=== PATIENT | male | born 1960 | race Caucasian/White ===

== ENCOUNTER 2020-01-09 13:37 | Emergency (ER) | payer BC, SELFPAY ==
[2020-01-09 13:59] VITALS: BP 127/86; PULSE 77; RESP 20; O2SAT 94; BMI 32.3
--- NOTE | 2020-01-09 14:08 | W.ED.URI ---
HPI - URI/Sore Throat General: Chief Complaint: Shortness of Breath/Dyspnea Stated Complaint: covid pos. Time Seen by Provider: 01/09/20 14:03 History of Present Illness: HPI Narrative: 59-year-old male reports being covid positive. Patient initially began having symptoms 8 days ago the following day was tested several other family members from a family gathering tested or also having symptoms and eventually tested positive. This test result came back 2 days ago his was also in the emergency room today symptomatic. He has no fever anymore he did have temps up to 101.6 that is resolved he still has significant cough he does had some anosmia as well as myalgias and headache his biggest persistent problem is a cough he denies any productive cough at this time has not had any vomiting or diarrhea. MD elicited complaint: cough Pertinent past history: other (COVID) Onset (ago): day(s) Description of mucous: clear Exacerbating factors: exertion Relieving factors: rest Associated symptoms: Reports no associated symptoms; Deny abdominal pain, chills, chest pain, diarrhea, ear or mastoid pain, fever(s), nasal congestion, nausea or vomiting Treatments prior to arrival: none Review of Systems Const: Denies: fever(s), chills, body aches, change in appetite, fatigue or malaise ENMT: Denies: throat pain, ear or mastoid pain, nasal discharge or nasal congestion Card: Denies: chest pain, edema, dyspnea on exertion or orthopnea Resp: Denies: dyspnea, productive cough or non-productive cough GI: Denies: abdominal pain, nausea, vomiting, hematemesis, coffee ground emesis, diarrhea, constipation, bloating, hematochezia or melena : Denies: flank pain, dysuria, urinary frequency or urinary urgency Skin/Breast: Denies: rash or pruritus PFSH ED PFSH: Medical History (Updated 01/09/20 @ 17:01 by Jose Landry DO) Asthma Diabetes mellitus Hypertension Hypothyroid Surgical History (Updated 01/09/20 @ 16:16 by Jose Landry DO) H/O hand surgery History of appendectomy Social History (Updated 01/09/20 @ 16:16 by Jose Landry DO) Smoking and tobacco status: never smoked Alcohol intake: never Physical Exam Const: COMMON NORMALS: no acute distress GENERAL APPEARANCE: cooperative and comfortable ORIENTATION/CONSCIOUSNESS: Yes awake, Yes oriented to person, Yes oriented to place and Yes oriented to time HENMT: COMMON NORMALS: normocephalic, atraumatic and hearing grossly normal bilaterally HEAD & SCALP: normocephalic and atraumatic Eye: COMMON NORMALS: Equal, round and reactive pupils present, EOMs intact bilaterally, conjunctivae normal and no scleral icterus CONJUNCTIVA: Yes conjunctivae normal PUPIL: Yes Equal, round and reactive pupils present Neck/C-Spine: COMMON NORMALS: full ROM, no lymphadenopathy, supple and no JVD Lymph: LYMPHATIC: no lymphadenopathy noted and no lymphedema noted Resp: AUSCULTATION: rhonchi throughout and wheezes throughout Cardio: COMMON NORMALS: no JVD, regular rate, regular rhythm and No murmurs present (Cardio) RATE: regular rate RHYTHM: regular rhythm GI: COMMON NORMALS: Soft to palpation and No hepatosplenomegaly present AUSCULTATION: Yes normoactive bowel sounds PALPATION: Yes Soft to palpation, No Tenderness to palpation present (GI), No Guarding due to palpation present (GI) and Yes No hepatosplenomegaly present Extremity: COMMON NORMALS: normal to inspection, capillary refill normal, no clubbing, cyanosis or edema, no calf tenderness and no pedal edema Neuro: SENSORIUM/ORIENTATION: Yes oriented to person, Yes oriented to place and Yes oriented to time Skin: COMMON NORMALS: no rashes or lesions noted GENERAL SKIN EXAM: no rashes or lesions noted Course Vital Signs: Vital signs: Vital Signs Pulse Rate 74 01/09/20 17:33 Respiratory Rate 18 01/09/20 17:33 Blood Pressure 134/82 01/09/20 17:33 Pulse Oximetry 93 01/09/20 17:33 MDM - URI/Sore Throat MDM Narrative: Medical decision making narrative: Sats are remaining good chest x-ray does not show significant infiltrates. His inflammatory markers are only slightly elevated he is resting comfortably with no significant cough we will go and discharge him home he should have a follow-up appointment with his regular doctor via video chat or with 1 of our guidance adviser early next week preferably on Saturday if he has any worsening problems she is to return to the emergency room immediately his who is also here is being transferred to [facility] but he is in better condition or at this time. Did impress on him this could worsen if it does he should return immediately should remain self quarantined until 14 days after his positive test. Lab Data: Labs: Lab Results 01/09/20 01/09/20 01/09/20 Range/Units 15:00 15:00 15:00 WBC 5.7 (4.0-10.0) 10^3/ uL RBC 5.31 H (4.1-5.3) 10^6/u L Hgb 16.5 (11.7-16.6) g/dL Hct 48.5 (42.0-52.0) % MCV 91.3 (80-94) fL MCH 31.1 (28.0-34.0) pg MCHC 34.0 (30.0-36.0) g/dL RDW 12.5 (12.1-15.1) % Plt Count 193 (130-400) 10^3/c mm MPV 9.6 (7.4-10.4) fL Neut % (Auto) 62.6 % Lymph % (Auto) 24.3 % [place] % (Auto) 11.0 % Eos % (Auto) 1.6 % Baso % (Auto) 0.3 % Neut # (Auto) 3.58 (1.8-7.7) 10^3/u L Lymph # (Auto) 1.4 (0.8-4.8) 10^3/u L [place] # (Auto) 0.6 (0.2-0.9) 10^3/u L Eos # (Auto) 0.1 (0.0-0.8) 10^3/u L Baso # (Auto) 0.0 (0.0-0.1) 10^3/u L Nucleated RBC % (a uto) 0 % Nucleated RBCs # 0.0 /100WBC Fibrinogen 602 H (174-498) mg/dL D-Dimer 0.73 H (0-0.59) ug/mIFE U Specimen Type Sample Site ABG pH (7.35-7.45) ABG pCO2 (35-45) mmHg ABG pO2 (80.0-100.0) mmH g ABG HCO3 (22-26) mmol/L ABG Base Excess (-2.0-2.0) mmol/ L Peter Test Hematocrit (42-52) % O2 Delivery Device FiO2 % Bottom Cager ID Sodium 132 L (136-145) mmol/L Potassium 4.4 (3.5-5.1) mmol/L Chloride 97 L (98-107) mmol/L Carbon Dioxide 25 (22-29) mmol/L Anion Gap 14.4 (5-19) BUN 12 (8-23) mg/dL Creatinine 0.9 (0.7-1.2) mg/dL GFR Calculation 86.1 L (90-130) mL/min Glucose 127 H (65-115) mg/dL Calculated Osmolal ity 272 L (285-295) mOsm/k g Lactic Acid (0.5-2.2) mmol/L Calcium 9.2 (8.5-10.5) mg/dL Magnesium 2.1 (1.7-2.3) mg/dL Ferritin 629 H (30-400) ng/mL Total Bilirubin 1.1 (0.15-1.2) mg/dL AST 22 (0-40) U/L ALT 33 (0-41) U/L Alkaline Phosphata se 111 (40-130) IU/L Lactate Dehydrogen ase 136 (135-225) U/L C-Reactive Protein 5.6 H (0.0-4.9) mg/L NT-Pro-B Natriuret Pep 16 (0-125) pg/mL Total Protein 7.7 (6.6-8.7) g/dL Albumin 4.4 (3.5-5.2) g/dL Globulin 3.3 (1.3-4.6) g/dL Procalcitonin 0.05 (0-0.5) ng/mL Influenza Type A A g (Negative) Influenza Type B A g (Negative) 01/09/20 01/09/20 01/09/20 Range/Units 15:00 15:00 16:06 WBC (4.0-10.0) 10^3/ uL RBC (4.1-5.3) 10^6/u L Hgb (11.7-16.6) g/dL Hct (42.0-52.0) % MCV (80-94) fL MCH (28.0-34.0) pg MCHC (30.0-36.0) g/dL RDW (12.1-15.1) % Plt Count (130-400) 10^3/c mm MPV (7.4-10.4) fL Neut % (Auto) % Lymph % (Auto) % [place] % (Auto) % Eos % (Auto) % Baso % (Auto) % Neut # (Auto) (1.8-7.7) 10^3/u L Lymph # (Auto) (0.8-4.8) 10^3/u L [place] # (Auto) (0.2-0.9) 10^3/u L Eos # (Auto) (0.0-0.8) 10^3/u L Baso # (Auto) (0.0-0.1) 10^3/u L Nucleated RBC % (a uto) % Nucleated RBCs # /100WBC Fibrinogen (174-498) mg/dL D-Dimer (0-0.59) ug/mIFE U Specimen Type Arterial Sample Site Radial, right ABG pH 7.41 (7.35-7.45) ABG pCO2 38.8 (35-45) mmHg ABG pO2 77.9 L (80.0-100.0) mmH g ABG HCO3 24.6 (22-26) mmol/L ABG Base Excess 0.1 (-2.0-2.0) mmol/ L Peter Test Pos Hematocrit 52.1 H (42-52) % O2 Delivery Device Room air FiO2 21.0 % Bottom Cager ID glc Sodium (136-145) mmol/L Potassium (3.5-5.1) mmol/L Chloride (98-107) mmol/L Carbon Dioxide (22-29) mmol/L Anion Gap (5-19) BUN (8-23) mg/dL Creatinine (0.7-1.2) mg/dL GFR Calculation (90-130) mL/min Glucose (65-115) mg/dL Calculated Osmolal ity (285-295) mOsm/k g Lactic Acid 1.3 (0.5-2.2) mmol/L Calcium (8.5-10.5) mg/dL Magnesium (1.7-2.3) mg/dL Ferritin (30-400) ng/mL Total Bilirubin (0.15-1.2) mg/dL AST (0-40) U/L ALT (0-41) U/L Alkaline Phosphata se (40-130) IU/L Lactate Dehydrogen ase (135-225) U/L C-Reactive Protein (0.0-4.9) mg/L NT-Pro-B Natriuret Pep (0-125) pg/mL Total Protein (6.6-8.7) g/dL Albumin (3.5-5.2) g/dL Globulin (1.3-4.6) g/dL Procalcitonin (0-0.5) ng/mL Influenza Type A A g Negative (Negative) Influenza Type B A g Negative (Negative) Discharge Plan Discharge Patient Disposition: Home Clinical Impression: COVID-19 virus infection, Asthma, Diabetes mellitus, Hypothyroid, Hypertension Condition: Stable Prescriptions: New albuterol sulfate 90 mcg/actuation HFA aerosol inhaler 2 inh INHALATION Q4H PRN (Reason: shortness of breath or wheezing) Qty: 18 RF: 0 No Action latanoprost 0.005 % drops See Rx Instructions .ROUTE .COMPLEX RF: 0 metoprolol succinate 50 mg tablet extended release 24 hr 50 mg PO DAILY RF: 0 timolol maleate 0.25 % drops See Rx Instructions .ROUTE .COMPLEX RF: 0 levothyroxine 50 mcg tablet 50 mcg PO DAILY RF: 0 pseudoephedrine HCl 30 mg tablet 30 mg PO DAILY RF: 0 metformin 500 mg tablet extended release 24 hr 1,500 mg PO BEDTIME RF: 0 lisinopril 2.5 mg tablet 2.5 mg PO DAILY RF: 0 rosuvastatin 5 mg tablet 5 mg PO DAILY RF: 0 Discharge Orders: Discharge Order (Routine); Ordered 01/09/20 Ordered By: Jose Landry Referrals: Debora Lewis MD [Primary Care Provider] - Discharge Diet: Advance as tolerated Discharge Activity: Limit activity as instructed Activity Restrictions/Additional Instructions: Aloe up with your doctor on Saturday if you are not able to follow-up with her call the emergency room and we will arrange for a follow-up with 1 of the guidance adviser. If you have any worsening of symptoms or difficulty breathing return to the emergency room Discharge Date/Time: 01/09/20 17:35 Coding Level of Care Code ED Business Development Representative for Lance Fwfernandez Exam Comprehensive
[2020-01-09 15:20] LABS: Basophils % 0.3 %; Eosinophils # 0.1 10^3/uL (0.0-0.8); Eosinophils % 1.6 %; Hematocrit 48.5 % (42.0-52.0); Hemoglobin 16.5 g/dL (11.7-16.6); Lymphocytes # 1.4 10^3/uL (0.8-4.8); Lymphocytes % 24.3 %; Mean Corpuscular Hemoglobin 31.1 pg (28.0-34.0); Mean Corpuscular Volume 91.3 fL (80-94); Mean Platelet Volume 9.6 fL (7.4-10.4); Monocytes # 0.6 10^3/uL (0.2-0.9); Neutrophils # 3.58 10^3/uL (1.8-7.7); Neutrophils % 62.6 %; Nucleated Red Blood Cells % 0 %; Platelet Count 193 10^3/cmm (130-400); Red Blood Count 5.31 10^6/uL (4.1-5.3); Red Cell Distribution Width 12.5 % (12.1-15.1); White Blood Count 5.7 10^3/uL (4.0-10.0)
[2020-01-09 15:45] LABS: Fibrinogen 602 mg/dL (174-498)
[2020-01-09 15:47] LABS: D Dimer 0.73 ug/mIFEU (0-0.59); Lactic Sepsis W/Reflex 1.3 mmol/L (0.5-2.2)
[2020-01-09 15:56] LABS: NT Pro B Type Natriuretic Pept 16 pg/mL (0-125); Procalcitonin 0.05 ng/mL (0-0.5)
[2020-01-09 16:00] VITALS: BP 117/92; PULSE 70; RESP 20; O2SAT 96
[2020-01-09 16:01] LABS: Influenza A by IFA Negative (Negative); Influenza B by IFA Negative (Negative)
[2020-01-09 16:08] LABS: Alanine Aminotransferase 33 U/L (0-41); Albumin Level 4.4 g/dL (3.5-5.2); Alkaline Phosphatase 111 IU/L (40-130); Anion Gap 14.4 (5-19); Aspartate Amino Transferase 22 U/L (0-40); Blood Urea Nitrogen 12 mg/dL (8-23); C Reactive Protein 5.6 mg/L (0.0-4.9); Calcium 9.2 mg/dL (8.5-10.5); Carbon Dioxide 25 mmol/L (22-29); Chloride 97 mmol/L (98-107); Ferritin 629 ng/mL (30-400); Globulin 3.3 g/dL (1.3-4.6); Glomerular Filtration Rate 86.1 mL/min (90-130); Glucose 127 mg/dL (65-115); Lactate Dehydrogenase 136 U/L (135-225); Magnesium 2.1 mg/dL (1.7-2.3); Osmolality Calculated 272 mOsm/kg (285-295); Potassium 4.4 mmol/L (3.5-5.1); Sodium 132 mmol/L (136-145); Total Bilirubin 1.1 mg/dL (0.15-1.2); Total Protein 7.7 g/dL (6.6-8.7)
--- NOTE | 2020-01-09 16:08 | XRR_ITS ---
PROCEDURE INFORMATION: Exam: XR Chest, 1 View Exam date and time: 01/09/2020 4:09 PM Age: 59 years old Clinical indication: Condition or disease; Other: Covid+; Cough and dyspnea; Additional info: Dyspnea/cough TECHNIQUE: Imaging protocol: XR of the chest Views: 1 view. COMPARISON: CR Chest 2 views* [id number] 12/08/2016 3:21 PM FINDINGS: Lungs: There is slightly increased ground-glass opacity in the lung bases compared to the prior exam. This may reflect some mild pneumonitis or atelectasis with underlying scarring. The upper lobes are clear. The pulmonary vascularity is within normal limits. No dense lobar consolidation. Pleural space: Unremarkable. No pleural effusion. No pneumothorax. Heart/Mediastinum: The heart is enlarged. Bones/joints: No acute abnormality. XR/XR chest 1V portable [id number] IMPRESSION: There is slightly increased ground-glass opacity in the lung bases compared to the prior exam. This may reflect some mild pneumonitis or atelectasis with underlying scarring.
[2020-01-09 16:18] LABS: ABG PCO2 38.8 mmHg (35-45); ABG PH Result 7.41 (7.35-7.45); Arterial Blood Gas Hematocrit 52.1 % (42-52); Base Excess ABG 0.1 mmol/L (-2.0-2.0); Blood Gas Allen Test Pos; Blood Gas Operator Identificat glc; Blood Gas Sample Site Radial, right; Blood Gas Sample Type Arterial; HCO3 ABG 24.6 mmol/L (22-26); Oxygen Device ROOM AIR; PO2 ABG 77.9 mmHg (80.0-100.0)
[2020-01-09 17:33] VITALS: BP 134/82; PULSE 74; RESP 18; O2SAT 93
== END 2020-01-09 17:35 | disposition home or self-care (01) ==
PROVIDERS: Emergency Provider Family Medicine; PCP Family Medicine
DX: U07.1 COVID-19 (principal); J45.909 Unspecified asthma, uncomplicated; E11.9 Type 2 diabetes mellitus without complications; E03.9 Hypothyroidism, unspecified; I10 Essential (primary) hypertension; Z79.84 Long term (current) use of oral hypoglycemic drugs
CPT/HCPCS: 12345; 36600; 71045; 80053; 82728; 82803; 83605; 83615; 83735; 83880; 84145; 85025; 85378; 85384; 86140; 87040; 87804; 99282; 99284

== ENCOUNTER 2021-11-15 07:11 | Outpatient (RCR) | payer BC, SELFPAY | END 2021-11-30 23:59 | disposition home or self-care (01) | LOC: SPT 07:11 | PROVIDERS: PCP Family Medicine; Referring Provider Internal Medicine; Visit Provider Internal Medicine | DX: I89.0 Lymphedema, not elsewhere classified (principal) | CPT/HCPCS: 97161 ==

== ENCOUNTER 2022-11-26 08:45 | Outpatient (CLI) | payer BC, SELFPAY ==
--- NOTE | 2022-11-26 | ECG_ITS ---
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 Interpretive Statements NAME OF STUDY: LEXISCAN SESTAMIBI STRESS TEST INDICATION: [cad, ] Procedure: At the baseline, the blood pressure was 154/94 mmHg with a heart rate of 60 bpm. The electrocardiogram showed normal sinus rhythm, normal axis with normal ST and T's. The Lexiscan was infused over a period of 20 seconds. A total of 0.4 mg of Lexiscan was infused. The stress phase was continued for a total of 5 minutes. Heart rate was at the end of stress phase was 84 bpm and a blood pressure of 134/84 mmHg. The EKG at the peak infusion revealed normal sinus rhythm with no significant ST-T wave changes. Sestamibi was injected 20 seconds after the Lexiscan infusion. Blood pressure at the end of recovery phase was 139/91 mmHg with a heart rate of 83 bpm. Conclusion: 1. Normal EKG response to Lexiscan infusion 2. No Lexiscan induced chest pain or cardiac arrhythmia. 3. Normal blood pressure and heart rate response. 4. Sestamibi/sestamibi perfusion scan pending; see separate report. Electronically Signed On 12-01-2022 14:44:25 CDT by Shukri Ibarra M.D. [email or web address]
[2022-11-26 09:32] VITALS: BMI 33.0
--- NOTE | 2022-11-26 09:33 | NMCV_ITS ---
NM aviva perf SPECT r/s* [id number] Sesar Goodman Age: 62 Gender: M : 1960 Exam Date: 11/26/2022 09:33 Ordering Phys: Marti Gutierrez MD Technologist: MIRACLE Stallings Exam Location: [facility] Indications: ATHEROSCLEROTIC HEART DISEASE STRESS TEST Please see separate stress test report in [facility] for full findings IMAGE PROTOCOL Rest/Stress 1 Lexiscan Day Radiopharmaceutical Dose (mCi) Administration Site Administered by Rest: Tc-99m 10.8 IV MIRACLE Melgoza Sestamibi Stress:Tc-99m 33.0 IV MIRACLE Melgoza Sestamibi Rest: 26-Nov-2022 60 Discovery 630 Stress: 26-Nov-2022 30 Discovery 630 0.4mg Lexiscan. Images obtained in supine and prone position. SPECT RESULTS Technical Quality: Excellent Raw Data Analysis: Normal Image Corrections: No attenuation or motion correction applied Summed Stress Score: 2 Summed Rest Score: 11 Summed Difference Score: 0 PERFUSION FINDINGS There is reduced radiotracer uptake seen in apical, apical lateral and inferolateral gale on resting images that improved on the stress imaging. This is consistent with attenuation artifact seen in these territories. No evidence of ischemia. FUNCTIONAL RESULTS (calculated via Gated SPECT) Stress Image LV EF (%): 58 Stress EDV (mL):106 TID: 1 Stress ESV (mL):45 FUNCTIONAL FINDINGS: There is normal left ventricular systolic function. IMPRESSIONS 1. Attenuation artifact noted in the apical, inferolateral and apical lateral gale. No evidence of ischemia 2. LV systolic function is normal Shukri Ibarra MD (Electronically Signed) Final Date: 26 November 2022 17:22 S
[2022-11-26] MEDS: regadenoson 0.4 Mg/5 ml Syringe IVP (10:21)
[2022-11-26 10:32] VITALS: BP 139/91; PULSE 83
== END 2022-11-26 08:46 | disposition home or self-care (01) ==
PROVIDERS: PCP Internal Medicine; Visit Provider Internal Medicine
DX: I25.10 Atherosclerotic heart disease of native coronary artery without angina pectoris (principal)
CPT/HCPCS: 36415; 78452; 93017; 96374; A9500; J2785

== ENCOUNTER 2023-05-07 16:19 | Outpatient (CLI) | payer BC, SELFPAY ==
[2023-05-07 17:20] LABS: Basophils # 0.1 10^3/uL (0.0-0.1); Basophils % 0.7 %; Eosinophils # 0.5 10^3/uL (0.0-0.8); Eosinophils % 6.6 %; Hematocrit 47.4 % (37-53); Lymphocytes # 2.3 10^3/uL (0.8-4.8); Lymphocytes % 34.4 %; Mean Corpuscular Hemoglobin 31.2 pg (27-33); Mean Corpuscular Volume 91.9 fl (82-101); Mean Platelet Volume 9.9 fL (7.4-10.4); Monocytes # 0.7 10^3/uL (0.2-0.9); Monocytes % 10.6 %; Neutrophils # 3.21 10^3/uL (1.8-7.7); Neutrophils % 47.6 %; Nucleated Red Blood Cells % 0 %; Platelet Count 275 10^3/cmm (157-399); Red Blood Count 5.16 10^6/uL (3.85-5.65); Red Cell Distribution Width 12.8 % (12.1-15.1); White Blood Count 6.77 10^3/uL (3.29-11.43)
[2023-05-07 17:41] LABS: INR 0.91 (0.8-1.2)
[2023-05-07 17:48] LABS: Alanine Aminotransferase 114 U/L (0-41); Albumin Level 4.4 g/dL (3.5-5.2); Alkaline Phosphatase 545 U/L (40-130); Aspartate Amino Transferase 67 U/L (0-40); Globulin 3.4 g/dL (1.3-4.6); Total Bilirubin 2.4 mg/dL (0.15-1.2); Total Protein 7.8 g/dL (6.6-8.7)
[2023-05-07 23:02] LABS: Hepatitis A Antibody IgM Non-Reactive (Nonreactive); Hepatitis B Core AB, Total Non-Reactive (Nonreactive); Hepatitis B Core IgM Non-Reactive (Nonreactive); Hepatitis B Surface AB 8.9 (11.5-1000); Hepatitis B Surface Antigen Non-Reactive (Nonreactive); Hepatitis C Virus Antibody Non-Reactive (Nonreactive)
[2023-05-10 16:05] LABS: Anti-Double Strand DNA AB <1 IU/mL; Jo-1 Antibody <1.0 NEG AI (<1.0 NEG); SM/RNP Antibodies <1.0 NEG AI (<1.0 NEG); SS-B/LA IGG <1.0 NEG AI (<1.0 NEG); Scleroderma Ab(Scl-70) Ab <1.0 NEG AI (<1.0 NEG); Ss-A/Ro Igg <1.0 NEG AI (<1.0 NEG)
== END 2023-05-07 16:20 | disposition home or self-care (01) ==
PROVIDERS: PCP Internal Medicine; Visit Provider Internal Medicine
DX: R74.8 Abnormal levels of other serum enzymes (principal)
CPT/HCPCS: 36415; 80074; 80076; 85025; 85610; 86225; 86235; 86705; 86706; 87340

== ENCOUNTER 2023-06-24 12:49 | Emergency (ER) | payer OTHER, SELFPAY ==
[2023-06-24 12:55] VITALS: BP 157/96; PULSE 67; RESP 16; TEMP 37.1; O2SAT 96; BMI 31.4
--- NOTE | 2023-06-24 13:03 | CT_ITS ---
WS: [id number] CT HEAD TECHNIQUE: Noncontrast CT of the head obtained from the skullbase to the vertex. CLINICAL INFORMATION: trauma/fall COMPARISON: None. DLP: 1382.[address] scans at [facility] use at least one of these dose optimization techniques: automated e xposure control; mA and/or kV adjustment per patient size (includes targeted exams where dose is matc hed to clinical indication); or iterative reconstruction. FINDINGS: No evidence of intracranial hemorrhage or mass effect. Ventricular system and basal cisterns are singh nt. Moderate small vessel changes with moderate parenchymal volume loss. No extra-axial fluid collect ions. No evidence of mass or mass effect. Intracranial vascular calcification. Mild mucosal thickening in the paranasal sinuses. Mastoid air cells are well aerated. IMPRESSION: 1. No evidence of intracranial hemorrhage or mass effect. 2. Moderate small vessel changes. Moderate parenchymal volume loss. 3. Intracranial vascular calcification. 4. No acute intracranial findings.
--- NOTE | 2023-06-24 13:03 | CT_ITS ---
WS: [id number] CT CERVICAL TRAUMA TECHNIQUE: Noncontrast CT of the cervical spine with coronal and sagittal reformatted images. CLINICAL INFORMATION: fall/trauma COMPARISON: None. DLP: 1382.[address] scans at [facility] use at least one of these dose optimization techniques: automated e xposure control; mA and/or kV adjustment per patient size (includes targeted exams where dose is matc hed to clinical indication); or iterative reconstruction. FINDINGS: Straightening of the normal cervical lordosis. Mild spondylitic changes. Normal craniocervical juncti on. Normal C1-C2 articulation. Dens is normal in appearance. Normal occipital condyles. No high-grade spinal canal narrowing. Normal C1 ring. No evidence of acute fracture or dislocation. Normal prevertebral soft tissues. Mastoids air cells are well aerated. IMPRESSION: No evidence of acute fracture or dislocation.
--- NOTE | 2023-06-24 15:55 | W.ED.HEATRA ---
HPI - Head Injury General: Chief complaint: Head Injury Stated complaint: fall, hit head Time Seen by Provider: 06/24/23 15:38 Source: patient and family () Mode of arrival: ambulatory Limitations: no limitations History of Present Illness: Patient is a nice 63-year-old male presents to ED today along with his for a Worker's Comp. injury involving a slip and fall. Patient states he was at work when he accidentally slipped and fell on an icy surface. Patient states he felt backwards and struck the posterior aspect of his scalp. Questionable LOC but states the fall knocked the sense out of me reporting that he had trouble remembering the fall and answering questions following the fall. Upon arrival to the ED his only complaint is some minor tenderness to the back of his scalp and some neck pain. He reportedly had some left posterior rib pain following the fall but this is completely subsided. He has no complaints of shortness of breath or difficulty breathing at this time. Patient is not on anticoagulation. MD Complaint: head injury Onset (ago): hour(s) Mechanism of Injury: fall (slip and fall on ice) Place: work Loss of Consciousness: unsure Location of injury: other (posterior scalp) Severity: mild Radiation: none Other Injuries: neck Context: on aspirin Associated symptoms: Reports confusion (fully resolved by arrival to ED) and neck pain; Deny syncope or vertigo Review of Systems Eyes: Denies: change in vision, blurry vision, photophobia, eye discharge, floaters or seeing flashes ENMT: Denies: throat pain, odynophagia, ear or mastoid pain, ear discharge, nasal discharge, epistaxis or sinus pain Card: Denies: chest pain, palpitations, lightheadedness, syncope or pre-syncope Resp: Denies: dyspnea or pain on inspiration GI: Denies: abdominal pain : Denies: flank pain or hematuria Musc: Reports: neck pain; Denies: back pain, extremity pain or joint pain Neuro: Reports: headache(s) (very mild posterior scalp pain) and confusion (fully resolved by arrival to ED); Denies: numbness in extremities, weakness in extremities, sensory changes, lack of coordination, difficulty walking, frequent falls, dizziness, vertigo, behavioral changes, Slurred speech present, difficulty communicating thoughts, seizure-like activity or involuntary movements [facility] ED PFSH: Medical History Hypertension Hypothyroid Diabetes mellitus Asthma Surgical History H/O hand surgery History of appendectomy Social History Smoking and tobacco/nicotine status: never used tobacco/nicotine Alcohol intake: never Physical Exam Const: COMMON NORMALS: no acute distress, average body habitus, patient oriented x3, no limitations, healthy appearing, alert and well nourished GENERAL APPEARANCE: cooperative ORIENTATION/CONSCIOUSNESS: Yes awake, Yes oriented to person, Yes oriented to place and Yes oriented to time HENMT: COMMON NORMALS: normocephalic, atraumatic and TM's normal bilaterally HEAD & SCALP: normal to inspection, normocephalic, atraumatic and other (mild abrasion posterior scalp); no Porter's sign, no hematoma and no raccoon eyes FACE & SINUS: normal facial exam TYMPANIC MEMBRANE: TM's normal bilaterally MOUTH: other (no intraoral injuries noted) Eye: COMMON NORMALS: Equal, round and reactive pupils present and EOMs intact bilaterally GENERAL EYE: appearance normal, both eyes and all related structures and normal light reflex PUPIL: Yes Equal, round and reactive pupils present DIRECT OPHTHALMOSCOPY: Yes normal light reflex Neck/C-Spine: COMMON NORMALS: full ROM GENERAL: Yes normal visual inspection CERVICAL SPINE: Yes cervical ROM normal, Yes pain with cervical ROM, Yes Cervical spine tenderness, No step off deformity and No Paracervical muscle tenderness Chest: COMMONS NORMALS: normal inspection of the chest and normal palpation of entire chest wall Resp: COMMON NORMALS: normal respiratory effort and clear to auscultation bilaterally AUSCULTATION: clear to auscultation bilaterally Cardio: COMMON NORMALS: regular rate and regular rhythm RATE: regular rate RHYTHM: regular rhythm GI: COMMON NORMALS: Normal to inspection, nondistended, normoactive bowel sounds present, Soft to palpation, non-tender, No hepatosplenomegaly present and no masses INSPECTION: Yes normal to inspection and No abdominal wall ecchymosis AUSCULTATION: Yes normoactive bowel sounds PALPATION: Yes Soft to palpation and Yes No hepatosplenomegaly present Back/Pelvis: COMMON NORMALS: thoracic and lumbar spine normal to inspection, no thoracic nor lumbar tenderness and thoraco-lumbar ROM normal Extremity: COMMON NORMALS: normal to inspection and full ROM GENERAL: Yes normal exam except as noted Neuro: LAYNE COMA SCALE: document GCS findings Layne coma scale eye opening: Spontaneous Layne coma scale verbal response: Orientated Layne coma scale motor response: Obey commands Delia coma scale total score: 15 COMMON NORMALS: patient oriented x3, CN's II-XII intact bilaterally, moves all extremities, no focal motor deficits, no sensory deficits noted and gait normal SENSORIUM/ORIENTATION: Yes alert, Yes oriented to person, Yes oriented to place and Yes oriented to time SPEECH: speech normal GAIT: Yes Normal gait present Skin: COMMON NORMALS: no rashes or lesions noted GENERAL SKIN EXAM: no rashes or lesions noted TRAUMA: no lacerations or abrasions Course Vital Signs: Vital signs: Vital Signs Temperature 98.8 F 06/24/23 12:55 Pulse Rate 67 06/24/23 12:55 Respiratory Rate 16 06/24/23 12:55 Blood Pressure 157/96 06/24/23 12:55 Pulse Oximetry 96 06/24/23 12:55 Oxygen Delivery Me thod Room Air 06/24/23 12:55 MDM - Head Injury Medcial Decision Making CT head and cervical spine are negative. Patient will be allowed discharge. Plan will be for follow-up with Worker's Comp. Return to ED precautions given. All radiology interpretation(s) finalized by discharge Discharge Plan Discharge Patient Disposition: Home Clinical Impression: Fall from slipping on ice Qualifiers: Encounter type: initial encounter Qualified Code(s): W00.9XXA - Unspecified fall due to ice and snow, initial encounter Contusion of scalp Qualifiers: Encounter type: initial encounter Qualified Code(s): S00.03XA - Contusion of scalp, initial encounter Cervical strain Qualifiers: Encounter type: initial encounter Qualified Code(s): S16.1XXA - Strain of muscle, fascia and tendon at neck level, initial encounter Condition: Stable Prescriptions: No Action latanoprost 0.005 % drops See Rx Instructions .ROUTE .COMPLEX Rx Instructions: use as directed metoprolol succinate 50 mg tablet extended release 24 hr 50 mg PO DAILY timolol maleate 0.25 % drops See Rx Instructions .ROUTE .COMPLEX Rx Instructions: use as directed levothyroxine 50 mcg tablet 50 mcg PO DAILY pseudoephedrine HCl 30 mg tablet 30 mg PO DAILY Rx Instructions: pt states he has not yet started this medication metformin 500 mg tablet extended release 24 hr 1,500 mg PO BEDTIME lisinopril 2.5 mg tablet 2.5 mg PO DAILY rosuvastatin 5 mg tablet 5 mg PO DAILY albuterol sulfate 90 mcg/actuation HFA aerosol inhaler 2 inh INHALATION Q4H PRN (Reason: shortness of breath or wheezing) Qty: 18 0RF Discharge Orders: Discharge ED (Routine); Ordered 06/24/23 Ordered By: Inocencia Moran Referrals: Marti Gutierrez MD [Primary Care Provider] - Activity Restrictions/Additional Instructions: As we discussed your CT imaging today was negative. You will follow-up with Worker's Comp. as directed. It was a pleasure caring for you today. I hope you begin to feel better soon. Coding Level of Care Code ED Ncqa Specialist for Lance Rosen
[2023-06-24 16:05] VITALS: BP 142/91; PULSE 73; RESP 16; O2SAT 96
== END 2023-06-24 16:06 | disposition home or self-care (01) ==
PROVIDERS: Emergency Provider Physician Assistant; PCP Internal Medicine
DX: S00.03XA Contusion of scalp, initial encounter (principal); S16.1XXA Strain of muscle, fascia and tendon at neck level, initial encounter; Z79.84 Long term (current) use of oral hypoglycemic drugs; I10 Essential (primary) hypertension; E11.9 Type 2 diabetes mellitus without complications; W00.0XXA Fall on same level due to ice and snow, initial encounter; Y99.0 Civilian activity done for income or pay
CPT/HCPCS: 70450; 72125; 99284

== ENCOUNTER 2024-04-27 10:23 | Outpatient (CLI) | payer BC, SELFPAY ==
[2024-04-27 11:46] LABS: Basophils % 0.2 %; Eosinophils # 0.2 10^3/uL (0.0-0.8); Eosinophils % 2.1 %; Hematocrit 35.9 % (37-53); Lymphocytes # 0.4 10^3/uL (0.8-4.8); Lymphocytes % 4.6 %; Mean Corpuscular HGB Conc 35.9 g/dL (30-55); Mean Corpuscular Hemoglobin 34.5 pg (27-33); Mean Platelet Volume 10.6 fL (7.4-10.4); Monocytes # 0.8 10^3/uL (0.2-0.9); Monocytes % 9.8 %; Neutrophils # 6.97 10^3/uL (1.8-7.7); Neutrophils % 82.8 %; Nucleated Red Blood Cells % 0 %; Platelet Count 313 10^3/cmm (157-399); Red Blood Count 3.74 10^6/uL (3.85-5.65); Red Cell Distribution Width 14.6 % (12.1-15.1); White Blood Count 8.43 10^3/uL (3.29-11.43)
[2024-04-27 12:09] LABS: INR 1.43 (0.8-1.2)
[2024-04-27 12:12] LABS: Alanine Aminotransferase 60 U/L (0-41); Albumin Level 3.2 g/dL (3.5-5.2); Alkaline Phosphatase 863 U/L (40-130); Aspartate Amino Transferase 120 U/L (0-40); Blood Urea Nitrogen 9 mg/dL (8-23); Calcium 9.5 mg/dL (8.5-10.5); Carbon Dioxide 28 mmol/L (22-29); Chloride 93 mmol/L (98-107); Globulin 3.8 g/dL (1.3-4.6); Glomerular Filtration Rate 216.6 mL/min (90-130); Glucose 159 mg/dL (65-115); Osmolality Calculated 274 mOsm/kg (285-295); Sodium 131 mmol/L (136-145)
[2024-04-27 14:24] LABS: Total Bilirubin 11.7 mg/dL (0.15-1.2)
== END 2024-04-27 10:24 | disposition home or self-care (01) ==
LOC: LAB 10:26
PROVIDERS: PCP Internal Medicine; Visit Provider Internal Medicine
DX: E11.65 Type 2 diabetes mellitus with hyperglycemia (principal); K83.01 Primary sclerosing cholangitis
CPT/HCPCS: 36415; 80053; 85025; 85610

== ENCOUNTER 2024-10-12 08:52 | Outpatient (CLI) | payer MEDICARE, OTHER, SELFPAY ==
[2024-10-12 10:20] LABS: Basophils % 0.5 %; Eosinophils # 0.1 10^3/uL (0.0-0.8); Eosinophils % 2.6 %; Hematocrit 38.8 % (37-53); Lymphocytes # 0.3 10^3/uL (0.8-4.8); Lymphocytes % 7.4 %; Mean Corpuscular HGB Conc 32.7 g/dL (30-55); Mean Corpuscular Hemoglobin 28.9 pg (27-33); Mean Corpuscular Volume 88.4 fl (82-101); Mean Platelet Volume 9.5 fL (7.4-10.4); Monocytes # 0.6 10^3/uL (0.2-0.9); Monocytes % 15.3 %; Neutrophils # 2.78 10^3/uL (1.8-7.7); Neutrophils % 73.7 %; Nucleated Red Blood Cells % 0 %; Platelet Count 270 10^3/cmm (157-399); Red Blood Count 4.39 10^6/uL (3.85-5.65); White Blood Count 3.78 10^3/uL (3.29-11.43)
[2024-10-12 10:35] LABS: Alanine Aminotransferase 117 U/L (0-41); Albumin Level 4.4 g/dL (3.5-5.2); Alkaline Phosphatase 156 U/L (40-130); Anion Gap 19.5 (5-19); Aspartate Amino Transferase 77 U/L (0-40); Blood Urea Nitrogen 21 mg/dL (8-23); Calcium 9.5 mg/dL (8.5-10.5); Carbon Dioxide 20 mmol/L (22-29); Chloride 105 mmol/L (98-107); Globulin 2.8 g/dL (1.3-4.6); Glomerular Filtration Rate 67.2 mL/min (90-130); Glucose 161 mg/dL (65-115); Osmolality Calculated 296 mOsm/kg (285-295); Potassium 4.5 mmol/L (3.5-5.1); Sodium 140 mmol/L (136-145); Total Bilirubin 0.4 mg/dL (0.15-1.2); Total Protein 7.2 g/dL (6.6-8.7)
== END 2024-10-12 08:53 | disposition home or self-care (01) ==
PROVIDERS: PCP Internal Medicine; Visit Provider Internal Medicine
DX: Z94.4 Liver transplant status (principal)
CPT/HCPCS: 36415; 80053; 80197; 82248; 85025

== ENCOUNTER 2024-10-27 06:55 | Outpatient (CLI) | payer MEDICARE, OTHER, SELFPAY ==
[2024-10-27 07:40] LABS: Basophils % 0.6 %; Eosinophils # 0.1 10^3/uL (0.0-0.8); Eosinophils % 2.3 %; Hematocrit 36.6 % (37-53); Lymphocytes # 0.4 10^3/uL (0.8-4.8); Lymphocytes % 7.5 %; Mean Corpuscular HGB Conc 32.8 g/dL (30-55); Mean Corpuscular Hemoglobin 29.6 pg (27-33); Mean Corpuscular Volume 90.4 fl (82-101); Mean Platelet Volume 9.9 fL (7.4-10.4); Monocytes # 0.9 10^3/uL (0.2-0.9); Neutrophils # 3.43 10^3/uL (1.8-7.7); Nucleated Red Blood Cells % 0 %; Platelet Count 232 10^3/cmm (157-399); Red Blood Count 4.05 10^6/uL (3.85-5.65); Red Cell Distribution Width 13.2 % (12.1-15.1); White Blood Count 4.83 10^3/uL (3.29-11.43)
[2024-10-27 07:58] LABS: Alanine Aminotransferase 217 U/L (0-41); Albumin Level 4.2 g/dL (3.5-5.2); Alkaline Phosphatase 204 U/L (40-130); Anion Gap 18.4 (5-19); Aspartate Amino Transferase 122 U/L (0-40); Blood Urea Nitrogen 22 mg/dL (8-23); Calcium 9.3 mg/dL (8.5-10.5); Carbon Dioxide 20 mmol/L (22-29); Chloride 105 mmol/L (98-107); Globulin 2.5 g/dL (1.3-4.6); Glomerular Filtration Rate 67.2 mL/min (90-130); Glucose 178 mg/dL (65-115); Osmolality Calculated 296 mOsm/kg (285-295); Potassium 4.4 mmol/L (3.5-5.1); Sodium 139 mmol/L (136-145); Total Bilirubin 0.4 mg/dL (0.15-1.2); Total Protein 6.7 g/dL (6.6-8.7)
[2024-10-28 15:05] LABS: Tacrolimus, Highly Sensitive 10.1 mcg/L
== END 2024-10-27 06:56 | disposition home or self-care (01) ==
PROVIDERS: PCP Internal Medicine; Visit Provider Internal Medicine
DX: Z94.4 Liver transplant status (principal)
CPT/HCPCS: 36415; 80053; 80197; 82248; 85025

== ENCOUNTER 2024-11-02 06:49 | Outpatient (CLI) | payer MEDICARE, OTHER, SELFPAY ==
[2024-11-02 07:52] LABS: Basophils % 0.6 %; Eosinophils # 0.2 10^3/uL (0.0-0.8); Eosinophils % 3.7 %; Hematocrit 35.2 % (37-53); Lymphocytes # 0.3 10^3/uL (0.8-4.8); Lymphocytes % 6.7 %; Mean Corpuscular HGB Conc 34.1 g/dL (30-55); Mean Corpuscular Hemoglobin 29.5 pg (27-33); Mean Corpuscular Volume 86.5 fl (82-101); Mean Platelet Volume 9.7 fL (7.4-10.4); Monocytes # 0.8 10^3/uL (0.2-0.9); Monocytes % 16.2 %; Neutrophils # 3.33 10^3/uL (1.8-7.7); Neutrophils % 72.2 %; Nucleated Red Blood Cells % 0 %; Platelet Count 217 10^3/cmm (157-399); Red Blood Count 4.07 10^6/uL (3.85-5.65); White Blood Count 4.62 10^3/uL (3.29-11.43)
[2024-11-02 08:14] LABS: Alanine Aminotransferase 191 U/L (0-41); Albumin Level 4.2 g/dL (3.5-5.2); Alkaline Phosphatase 182 U/L (40-130); Anion Gap 15.3 (5-19); Aspartate Amino Transferase 111 U/L (0-40); Blood Urea Nitrogen 20 mg/dL (8-23); Calcium 9.2 mg/dL (8.5-10.5); Carbon Dioxide 21 mmol/L (22-29); Chloride 106 mmol/L (98-107); Globulin 2.5 g/dL (1.3-4.6); Glomerular Filtration Rate 60.8 mL/min (90-130); Glucose 165 mg/dL (65-115); Osmolality Calculated 292 mOsm/kg (285-295); Potassium 4.3 mmol/L (3.5-5.1); Sodium 138 mmol/L (136-145); Total Bilirubin 0.7 mg/dL (0.15-1.2); Total Protein 6.7 g/dL (6.6-8.7)
[2024-11-03 15:04] LABS: Tacrolimus, Highly Sensitive 9.2 mcg/L
== END 2024-11-02 06:50 | disposition home or self-care (01) ==
PROVIDERS: PCP Internal Medicine; Visit Provider Internal Medicine
DX: Z94.4 Liver transplant status (principal)
CPT/HCPCS: 36415; 80053; 80197; 82248; 85025

== ENCOUNTER 2024-11-30 08:17 | Outpatient (CLI) | payer MEDICARE, OTHER, SELFPAY ==
[2024-11-30 09:42] LABS: Basophils % 0.4 %; Eosinophils # 0.2 10^3/uL (0.0-0.8); Hematocrit 36.8 % (37-53); Lymphocytes # 0.4 10^3/uL (0.8-4.8); Lymphocytes % 6.7 %; Mean Corpuscular HGB Conc 33.7 g/dL (30-55); Mean Corpuscular Hemoglobin 29.5 pg (27-33); Mean Corpuscular Volume 87.4 fl (82-101); Mean Platelet Volume 10.3 fL (7.4-10.4); Monocytes # 0.5 10^3/uL (0.2-0.9); Monocytes % 10.3 %; Neutrophils # 4.11 10^3/uL (1.8-7.7); Neutrophils % 78.2 %; Nucleated Red Blood Cells % 0 %; Platelet Count 165 10^3/cmm (157-399); Red Blood Count 4.21 10^6/uL (3.85-5.65); White Blood Count 5.25 10^3/uL (3.29-11.43)
[2024-11-30 10:57] LABS: Slide Review Slide Review Perform
[2024-11-30 17:53] LABS: Alanine Aminotransferase 49 U/L (0-41); Alkaline Phosphatase 185 U/L (40-130); Anion Gap 19.7 (5-19); Aspartate Amino Transferase 31 U/L (0-40); Blood Urea Nitrogen 27 mg/dL (8-23); Carbon Dioxide 19 mmol/L (22-29); Chloride 105 mmol/L (98-107); Glucose 274 mg/dL (65-115); Osmolality Calculated 303 mOsm/kg (285-295); Potassium 4.7 mmol/L (3.5-5.1); Sodium 139 mmol/L (136-145); Total Bilirubin 0.5 mg/dL (0.15-1.2)
[2024-12-01 14:55] LABS: Tacrolimus, Highly Sensitive 16.5 mcg/L
[2024-12-03 00:44] LABS: Everolimus LC/MS/MS Blood 21.9 ng/mL
== END 2024-11-30 08:18 | disposition home or self-care (01) ==
LOC: LAB 08:23
PROVIDERS: PCP Internal Medicine; Visit Provider Internal Medicine
DX: Z94.4 Liver transplant status (principal)
CPT/HCPCS: 36415; 80053; 80169; 80197; 82248; 85025

== ENCOUNTER 2024-12-07 07:51 | Outpatient (CLI) | payer MEDICARE, OTHER, SELFPAY ==
[2024-12-07 08:22] LABS: Hematocrit 39.4 % (37-53); Hemoglobin 12.70 g/dL (11.27-16.99); Mean Corpuscular HGB Conc 32.2 g/dL (30-55); Mean Corpuscular Hemoglobin 28.9 pg (27-33); Mean Corpuscular Volume 89.7 fl (82-101); Nucleated Red Blood Cells % 0 %; Platelet Count 114 10^3/cmm (157-399); Red Blood Count 4.39 10^6/uL (3.85-5.65); White Blood Count 2.35 10^3/uL (3.29-11.43)
[2024-12-08 13:13] LABS: Tacrolimus, Highly Sensitive 10.4 mcg/L
[2024-12-10 22:44] LABS: Everolimus LC/MS/MS Blood 26.5 ng/mL
== END 2024-12-07 07:52 | disposition home or self-care (01) ==
PROVIDERS: PCP Internal Medicine; Visit Provider Internal Medicine
DX: Z94.4 Liver transplant status (principal)
CPT/HCPCS: 36415; 80169; 80197; 85025

== ENCOUNTER 2024-12-08 08:20 | Outpatient (CLI) | payer MEDICARE, OTHER, SELFPAY ==
[2024-12-08 09:24] LABS: Alanine Aminotransferase 26 U/L (0-41); Albumin Level 3.9 g/dL (3.5-5.2); Alkaline Phosphatase 219 U/L (40-130); Blood Urea Nitrogen 26 mg/dL (8-23); Calcium 9.4 mg/dL (8.5-10.5); Carbon Dioxide 19 mmol/L (22-29); Chloride 102 mmol/L (98-107); Globulin 3.3 g/dL (1.3-4.6); Glucose 226 mg/dL (65-115); Osmolality Calculated 292 mOsm/kg (285-295); Sodium 135 mmol/L (136-145); Total Protein 7.2 g/dL (6.6-8.7)
[2024-12-08 09:38] LABS: Anion Gap 18.7 (5-19); Aspartate Amino Transferase 25 U/L (0-40); Potassium 4.7 mmol/L (3.5-5.1)
== END 2024-12-08 08:21 | disposition home or self-care (01) ==
LOC: LAB 08:30
PROVIDERS: PCP Internal Medicine; Visit Provider Internal Medicine
DX: Z94.4 Liver transplant status (principal); Z79.899 Other long term (current) drug therapy
CPT/HCPCS: 36415; 80053; 82248